=== PATIENT | female | born 1995 | race Caucasian/White ===

== ENCOUNTER 2021-03-14 17:02 | Emergency (ER) | payer MEDICAID ==
[~2021-03-14] VITALS: Ht 162.6 cm; Wt 68.0 kg
[2021-03-14] MEDS ORDERED: FAMOTIDINE 20MG/2ML VIAL IV STA (21:42)
[2021-03-14] MEDS ORDERED: KETOROLAC 30MG/ML VIAL IV STA (21:42)
[2021-03-14] MEDS ORDERED: SODIUM CHLORIDE 0.9% 1,000 ML IV ONE (21:45)
[2021-03-14 22:12] LABS: BASOPHILS % 0.4 % (0.0-2.0); HEMATOCRIT. 42.9 % (36.0-48.0); HEMOGLOBIN. 14.9 g/dL (12.0-16.0); LYMPHOCYTES % 27.6 % (20.0-50.0); MEAN CORPUSCULAR HEMOGLOBIN 31.6 pg (28.0-32.0); MEAN CORPUSCULAR VOLUME 91.1 fL (81.0-99.0); MEAN PLATELET VOLUME 9.9 fl (7.4-10.4); MONOCYTES % 6.8 % (2.0-8.0); NEUTROPHILS % 63.2 % (40.0-76.0); PLATELET 227 x1000/uL (130-400); RED BLOOD CELL COUNT 4.72 mill/uL (4.2-5.4); RED CELL DISTRIBUTION WIDTH 13.2 % (11.6-14.6)
[2021-03-14 22:19] LABS: CHLORIDE 108 mEq/L (98-107)
[2021-03-14 22:22] LABS: INR 0.9; PROTHROMBIN TIME 10.2 sec (9.6-11.0)
[2021-03-14 22:24] LABS: HCG SCREEN NEGATIVE
[2021-03-14] MEDS ORDERED: MORPHINE SULFATE 2 MG/ML CPJ (NOT FOR IM USE) IV ONE (22:30)
[2021-03-15] MEDS ORDERED: IBUP-2029 MT (02:39)
[2021-03-15 02:57] VITALS: BP 111/72
== END 2021-03-15 03:10 | disposition home or self-care (01) ==
LOC: ER 17:02
DX: K80.20 Calculus of gallbladder without cholecystitis without obstruction (principal)
CPT/HCPCS: 36415; 76705; 80053; 83690; 84703; 85025; 85610; 96361; 96374; 96375; 99284; J1885; J2270; J3490; J7030

== ENCOUNTER 2021-05-28 07:55 | Emergency (ER) | payer MEDICAID ==
[~2021-05-28] VITALS: Ht 160 cm; Wt 73.0 kg
[~2021-05-28 07:55] MED LIST: IBUP-2029 MT
[2021-05-28] MEDS ORDERED: ACETAMINOPHEN 325MG TABLET PO ONE (08:30)
[2021-05-28] MEDS ORDERED: ONDANSETRON 4MG ODT PO ONE (08:30)
[2021-05-28 10:10] LABS: CLARITY URINE CLOUDY (CLEAR); COLOR URINE YELLOW (YELLOW)
[2021-05-28 10:11] LABS: KETONES URINE NEGATIVE (NEGATIVE); PH URINE 5.5 (4.5-8.0); PROTEIN URINE NEGATIVE (NEGATIVE); SPECIFIC GRAVITY URINE 1.029 (1.005-1.030)
[2021-05-28 10:12] LABS: LEUKOCYTE ESTERASE URINE NEGATIVE (NEGATIVE); NITRITE URINE NEGATIVE (NEGATIVE); OCCULT BLOOD URINE 2+ (NEGATIVE); UROBILINOGEN URINE 0.2 E.U./dL (0.2-1.0)
[2021-05-28 10:18] LABS: BASOPHILS % 1.1 % (0.0-2.0); EOSINOPHILS % 3.1 % (0.0-5.0); HEMATOCRIT. 40.6 % (36.0-48.0); HEMOGLOBIN. 14.2 g/dL (12.0-16.0); LYMPHOCYTES % 25.9 % (20.0-50.0); MEAN CORPUSCULAR HEMOGLOBIN 31.7 pg (28.0-32.0); MEAN CORPUSCULAR VOLUME 90.6 fL (81.0-99.0); MEAN PLATELET VOLUME 9.6 fl (7.4-10.4); MONOCYTES % 8.7 % (2.0-8.0); NEUTROPHILS % 61.2 % (40.0-76.0); PLATELET 256 x1000/uL (130-400); RED BLOOD CELL COUNT 4.48 mill/uL (4.2-5.4); RED CELL DISTRIBUTION WIDTH 13.2 % (11.6-14.6)
[2021-05-28 10:19] LABS: CHLORIDE 109 mEq/L (98-107)
[2021-05-28 10:25] LABS: HCG SCREEN NEGATIVE
[2021-05-28 11:10] VITALS: BP 116/69
== END 2021-05-28 11:17 | disposition home or self-care (01) ==
LOC: ER 07:55
DX: K80.20 Calculus of gallbladder without cholecystitis without obstruction (principal)
CPT/HCPCS: 36415; 76705; 80053; 81003; 81025; 83690; 84703; 85025; 99284; Q0162